=== PATIENT | female | born 1980 | race Hispanic/Latino ===

== ENCOUNTER → 2022-02-28 | Day surgery (SDC) | payer BC ==
[~2022-02-28] MED LIST: FENTANYL CITRATE/PF 100MCG/2 ML INJ ONE; HYOSCYAMINE SULFATE 0.5 MG/ML INJ ONE; LIDOCAINE HCL 2% LOCAL INJ 5 ML SDV VIAL INJ ONE; METOCLOPRAMIDE HCL 10 MG/2ML VIAL ONE; MIDAZOLAM HCL 2 MG/2 ML VIAL ONE; PROPOFOL IV EMULSION 10 MG/ML 20 ML VIAL ONE
[2022-02-28 17:50] VITALS: BP 120/70
== END | disposition home or self-care (01) ==
LOC: OR 12:18
PROVIDERS: ATTEND Internal Medicine Gastroenterology
DX: K21.9 Gastro-esophageal reflux disease without esophagitis (principal); K62.1 Rectal polyp; K29.70 Gastritis, unspecified, without bleeding; K20.90 Esophagitis, unspecified without bleeding; K64.8 Other hemorrhoids; Z71.3 Dietary counseling and surveillance; R00.2 Palpitations; E66.9 Obesity, unspecified; I89.0 Lymphedema, not elsewhere classified; Z01.812 Encounter for preprocedural laboratory examination; Z20.822 Contact with and (suspected) exposure to COVID-19; Z68.41 Body mass index [BMI] 40.0-44.9, adult; Z86.16 Personal history of COVID-19
CPT/HCPCS: 0223U; 36415; 43239; 45385; C9113; J1980; J2001; J2250; J2704; J2765; J3010; 45378